=== PATIENT | male | born 1970 | race Caucasian/White ===

== ENCOUNTER → 2017-12-22 | Outpatient (REF) | payer OTHER ==
[2017-12-24 16:09] LABS: SEMEN APPEARANCE OPAQUE (OPAQUE); SEMEN VISCOSITY VISCOUS (LIQUID); SEMEN pH 8.5 (7.0-8.0)
[2017-12-24 16:10] LABS: IMMMOTILE SPERM CENTRIFUGED PRESENT (ABSENT); IMMOTILE SPERM PRESENT (ABSENT); MOTILE SPERM PRESENT (ABSENT); MOTILE SPERM CENTRIFUGED PRESENT (ABSENT); WBC CONCENTRATION >1 M/ml (<=1 M/ml)
== END ==
LOC: M SMT 16:07
DX: Z30.9 Encounter for contraceptive management, unspecified (principal)
CPT/HCPCS: 89321

== ENCOUNTER → 2022-05-16 | Outpatient (CLI) | payer OTHER ==
[~2022-05-16] MED LIST: ADVA115A INH; ALBU2.5V10 INH; ALBU8.5H INH; CETI-24 PO; PRED20TA PO
== END ==
LOC: M RAD 16:01
PROVIDERS: ATTEND Physician Assistant
DX: R05.9 Cough, unspecified (principal)

== ENCOUNTER 2022-05-20 04:57 | Emergency (ER) | payer OTHER ==
[~2022-05-20] VITALS: Ht 170.2 cm; Wt 90.8 kg
[2022-05-20] MEDS ORDERED: ALBU2.5V10 INH (05:08)
[2022-05-20] MEDS ORDERED: ALBU8.5H INH (05:08)
[2022-05-20] MEDS ORDERED: ADVA115A INH (10:36)
[2022-05-20] MEDS ORDERED: CETI-24 PO (10:36)
[2022-05-20] MEDS ORDERED: PRED20TA PO (10:36)
[2022-05-20 11:16] VITALS: BP 154/93
== END 2022-05-20 11:29 | disposition home or self-care (01) ==
LOC: M ED 04:57
DX: R06.02 Shortness of breath (principal); R06.2 Wheezing; R91.1 Solitary pulmonary nodule; F17.200 Nicotine dependence, unspecified, uncomplicated; Z88.0 Allergy status to penicillin

== ENCOUNTER → 2023-06-13 | Outpatient (CLI) | payer OTHER | LOC: M RAD 07:57 | PROVIDERS: ATTEND Registered Nurse | DX: Z12.2 Encounter for screening for malignant neoplasm of respiratory organs (principal); Z87.891 Personal history of nicotine dependence; R91.8 Other nonspecific abnormal finding of lung field ==